=== PATIENT | male | born 1950 | race Caucasian/White ===

== ENCOUNTER 2024-07-21 23:19 | Inpatient (IN) | payer MEDICARE ==
[~2024-07-21] VITALS: Ht 188 cm; Wt 88.5 kg
[2024-07-21 23:25] VITALS: BP 145/98; TEMP 97.9; O2SAT 98
[2024-07-22] MEDS ORDERED: LORAZEPAM 1 MG TABLET PO PRN (00:15)
[2024-07-22] MEDS ORDERED: AMLO2.5T4 PO (00:15)
[2024-07-22] MEDS ORDERED: ZOLPIDEM 5 MG TABLET PO PRN (00:15)
[2024-07-22] MEDS ORDERED: MAG HYDROX/AL HYDROX/SIMETH 30 ML LIQUID UDC PO PRN (00:15)
[2024-07-22] MEDS ORDERED: IBUP-1957 PO (00:15)
[2024-07-22] MEDS ORDERED: MAGNESIUM HYDROXIDE 30 ML LIQUID UDC PO PRN (00:15)
[2024-07-22] MEDS ORDERED: RISP4TAB4 PO (00:15)
[2024-07-22] MEDS ORDERED: CLON0.1T PO (00:15)
[2024-07-22] MEDS ORDERED: ACETAMINOPHEN 325 MG TABLET PO PRN (00:15)
[2024-07-22] MEDS ORDERED: OLAN10TA3 PO (00:15)
[2024-07-22] MEDS ORDERED: QUET50TA PO (00:15)
[2024-07-22] MEDS: BLOOD SUGAR DIAGNOSTIC 1 EACH STRIP VI ONE (00:20)
[2024-07-22] MEDS: LORAZEPAM 1 MG TABLET PO PRN ×2 (01:02→12:11)
[2024-07-22 08:08] VITALS: BP 139/93; TEMP 98; O2SAT 98
[2024-07-22] MEDS: OLANZAPINE 5 MG TABLET PO SCH (10:22)
[2024-07-22] MEDS ORDERED: CLONIDINE HCL 0.1 MG TABLET PO PRN (10:30)
[2024-07-22] MEDS ORDERED: IBUPROFEN 800 MG TABLET PO PRN (10:30)
[2024-07-22] MEDS: AMLODIPINE 2.5 MG TABLET PO SCH (12:18)
[2024-07-22] MEDS: OLANZAPINE 10 MG VIAL IM ONE (14:36)
[2024-07-22] MEDS: IBUPROFEN 600 MG TABLET PO PRN (18:56)
[2024-07-22 20:00] VITALS: BP 121/81; TEMP 98.1; O2SAT 97
[2024-07-22] MEDS: ZOLPIDEM 5 MG TABLET PO PRN (20:06)
[2024-07-23 08:07] VITALS: BP 150/101; TEMP 98; O2SAT 100
[2024-07-23] MEDS ORDERED: AMLODIPINE 2.5 MG TABLET PO SCH (09:00)
[2024-07-23 16:22] VITALS: BP 112/82; TEMP 97.6; O2SAT 100
[2024-07-23 20:06] VITALS: BP 146/84; TEMP 98.1; O2SAT 99
[2024-07-24 08:10] VITALS: BP 139/81; TEMP 97.6; O2SAT 100
[2024-07-24 16:18] VITALS: BP 118/62; TEMP 98; O2SAT 100
[2024-07-25 07:30] VITALS: BP 130/88; TEMP 98; O2SAT 99
[2024-07-25 15:33] VITALS: BP 127/75; TEMP 98; O2SAT 98
[2024-07-25 20:00] VITALS: BP 115/74; TEMP 97.5; O2SAT 99
[2024-07-26 08:00] VITALS: BP 132/75; TEMP 98; O2SAT 100
[2024-07-26 15:06] VITALS: BP 145/79; TEMP 98; O2SAT 96
[2024-07-26 20:00] VITALS: BP 122/68; TEMP 98; O2SAT 97
[2024-07-27 08:16] VITALS: BP 119/80; TEMP 98; O2SAT 99
[2024-07-27] MEDS: OLANZAPINE 5 MG TABLET PO SCH (09:06)
[2024-07-27 16:07] VITALS: BP 140/70; TEMP 98; O2SAT 99
[2024-07-27 20:00] VITALS: BP 169/89; TEMP 97.5; O2SAT 97
[2024-07-27 22:25] VITALS: BP 114/58
[2024-07-28 16:18] VITALS: BP 110/55; TEMP 97.6; O2SAT 100
[2024-07-28 20:35] VITALS: BP 123/84; TEMP 98.1; O2SAT 97
[2024-07-29 08:22] VITALS: BP 127/80; TEMP 98.2; O2SAT 100
[2024-07-29 20:00] VITALS: BP 107/67; TEMP 98; O2SAT 98
[2024-07-30 15:04] LABS: BASOPHILS # (AUTO) 0.1 K/UL (0.0-0.2); BASOPHILS % (AUTO) 1.4 % (0.0-2.0); EOSINOPHILS # (AUTO) 0.3 K/uL (0.0-0.7); EOSINOPHILS % (AUTO) 4.4 % (0.0-7.0); HEMOGLOBIN 14.7 g/dL (12.5-16.3); LYMPHOCYTES # (AUTO) 2.3 K/uL (0.8-4.8); LYMPHOCYTES % (AUTO) 28.7 % (20.5-51.5); MEAN CORPUSCULAR HEMOGLOBIN 31.4 uug (23.8-33.4); MEAN CORPUSCULAR HGB CONC 35 g/dL (32.5-36.3); MEAN CORPUSCULAR VOLUME 89.8 fL (73.0-96.2); MONOCYTES # (AUTO) 0.5 K/uL (0.1-1.30); MONOCYTES % (AUTO) 6.9 % (0.0-11.0); NEUTROPHILS # (AUTO) 4.6 K/uL (1.8-8.9); NEUTROPHILS % (AUTO) 58.6 % (38.5-71.5); PLATELET COUNT (AUTO) 254 K/uL (152-348); RED BLOOD CELL COUNT(AUTO) 4.68 MIL/uL (4.06-5.63); RED CELL DISTRIBUTION WIDTH 13.9 % (12.1-16.2); WHITE BLOOD COUNT (AUTO) 7.9 K/uL (3.6-10.2)
[2024-07-30 15:09] LABS: DIFFERENTIAL COMMENT 1
[2024-07-30 15:27] LABS: THYROID STIMULATING HORMONE 1.208 mIU/mL (0.358-3.740)
[2024-07-30 15:46] LABS: ALANINE AMINOTRANSFERASE 22 U/L (16-63); ALBUMIN 3.7 g/dL (3.4-5.0); ALKALINE PHOSPHATASE 104 U/L (50-136); ASPARTATE AMINOTRANSFERASE 9 U/L (15-37); BILIRUBIN,TOTAL 0.4 mg/dL (0.2-1.0); CALCIUM 9.1 mg/dL (8.5-10.1); CARBON DIOXIDE 28 mmol/L (21-32); CHLORIDE 105 mmol/L (98-107); CHOLESTEROL 159 mg/dL (<200); GLUCOSE 112 mg/dL (74-106); HDL CHOLESTEROL 29 mg/dL (40-60); PHOSPHOROUS 3.4 mg/dL (2.5-4.9); POTASSIUM 4.1 mmol/L (3.5-5.1); SODIUM SERUM 142 mmol/L (136-145); TOTAL PROTEIN, SERUM 7.5 g/dL (6.4-8.2); TRIGLYCERIDES 496 MG/DL (30-150); UREA NITROGEN, BLOOD 22 mg/dL (7-18)
[2024-07-31 08:12] VITALS: BP 138/91; TEMP 98; O2SAT 100
[2024-07-31] MEDS: OLANZAPINE 5 MG TABLET PO SCH (08:58)
[2024-07-31 19:55] VITALS: BP 130/84; TEMP 98.1; O2SAT 99
[2024-08-01 09:43] VITALS: BP 133/86; TEMP 98; O2SAT 100
[2024-08-01 16:05] VITALS: BP 132/62; TEMP 98; O2SAT 100
[2024-08-01 19:59] VITALS: BP 128/84; TEMP 98.1; O2SAT 99
[2024-08-02 08:16] VITALS: BP 144/97; TEMP 98; O2SAT 100
[2024-08-02 16:14] VITALS: BP 138/91; TEMP 98.2; O2SAT 100
[2024-08-02 20:00] VITALS: BP 118/75; TEMP 97.5
[2024-08-03 07:55] VITALS: BP 146/82; TEMP 98; O2SAT 100
[2024-08-03 15:18] VITALS: BP 114/80; TEMP 98; O2SAT 99
[2024-08-03 19:50] VITALS: BP 110/77; TEMP 97.7; O2SAT 98
[2024-08-04 08:10] VITALS: BP 132/79; TEMP 98; O2SAT 100
[2024-08-04 10:55] VITALS: BP 132/79
[2024-08-04] MEDS ORDERED: CLON0.1T PO (11:41)
[2024-08-04] MEDS ORDERED: AMLO2.5T4 PO (11:41)
== END 2024-08-04 14:45 | DRG 885 ==
LOC: GPS 23:19
PROVIDERS: ADMIT Psychiatry & Neurology Psychiatry; ATTEND Internal Medicine
DX: F29 Unspecified psychosis not due to a substance or known physiological condition (principal); F03.93 Unspecified dementia, unspecified severity, with mood disturbance; F03.94 Unspecified dementia, unspecified severity, with anxiety; D68.59 Other primary thrombophilia; M62.81 Muscle weakness (generalized); Z91.199 Patient's noncompliance with other medical treatment and regimen due to unspecified reason; G89.29 Other chronic pain; I10 Essential (primary) hypertension; R79.89 Other specified abnormal findings of blood chemistry; R26.81 Unsteadiness on feet; E78.1 Pure hyperglyceridemia; Z91.81 History of falling; Z79.899 Other long term (current) drug therapy
CPT/HCPCS: 36415; 71045; 83735; 84100; 84443; 85025; J2358

== ENCOUNTER 2024-08-15 16:56 | Inpatient (IN) | payer MEDICARE ==
[~2024-08-15] VITALS: Ht 172.7 cm; Wt 88.5 kg
[~2024-08-15 16:56] MED LIST: AMLO2.5T4 PO; CLON0.1T PO
[2024-08-15 17:35] LABS: BASOPHILS # (AUTO) 0.1 K/UL (0.0-0.2); BASOPHILS % (AUTO) 0.7 % (0.0-2.0); EOSINOPHILS # (AUTO) 0.2 K/uL (0.0-0.7); EOSINOPHILS % (AUTO) 3.1 % (0.0-7.0); HEMATOCRIT 37.1 % (36.7-47.1); HEMOGLOBIN 12.8 g/dL (12.5-16.3); LYMPHOCYTES # (AUTO) 1.7 K/uL (0.8-4.8); LYMPHOCYTES % (AUTO) 22.5 % (20.5-51.5); MEAN CORPUSCULAR HEMOGLOBIN 31.4 uug (23.8-33.4); MEAN CORPUSCULAR HGB CONC 35 g/dL (32.5-36.3); MONOCYTES # (AUTO) 0.5 K/uL (0.1-1.30); MONOCYTES % (AUTO) 6.4 % (0.0-11.0); NEUTROPHILS # (AUTO) 5.1 K/uL (1.8-8.9); NEUTROPHILS % (AUTO) 67.3 % (38.5-71.5); PLATELET COUNT (AUTO) 227 K/uL (152-348); RED BLOOD CELL COUNT(AUTO) 4.08 MIL/uL (4.06-5.63); RED CELL DISTRIBUTION WIDTH 14.1 % (12.1-16.2); WHITE BLOOD COUNT (AUTO) 7.6 K/uL (3.6-10.2)
[2024-08-15 17:36] LABS: DIFFERENTIAL COMMENT 1
[2024-08-15 17:42] LABS: CALCIUM 8.6 mg/dL (8.5-10.1); CARBON DIOXIDE 26 mmol/L (21-32); CHLORIDE 111 mmol/L (98-107); GLUCOSE 115 mg/dL (74-106); POTASSIUM 3.9 mmol/L (3.5-5.1); SODIUM SERUM 147 mmol/L (136-145); UREA NITROGEN, BLOOD 21 mg/dL (7-18)
[2024-08-15 17:47] LABS: ALANINE AMINOTRANSFERASE 14 U/L (16-63); ALBUMIN 3.5 g/dL (3.4-5.0); ALKALINE PHOSPHATASE 90 U/L (50-136); ASPARTATE AMINOTRANSFERASE 12 U/L (15-37); BILIRUBIN,DIRECT 0.1 mg/dL (0.0-0.2); BILIRUBIN,TOTAL 0.4 mg/dL (0.2-1.0); TOTAL PROTEIN, SERUM 6.7 g/dL (6.4-8.2)
[2024-08-15] MEDS: LORAZEPAM 0.5 MG TABLET PO ONE (21:05)
[2024-08-15] MEDS: OLANZAPINE 5 MG TABLET PO ONE (21:05)
[2024-08-15] MEDS ORDERED: OLANZAPINE 5 MG TABLET ONE (23:30)
[2024-08-15] MEDS ORDERED: LORAZEPAM 1 MG TABLET ONE (23:30)
[2024-08-16 00:51] LABS: ETHANOL < 3 MG/DL (0-10)
[2024-08-16] MEDS ORDERED: ZOLPIDEM 5 MG TABLET PO PRN ×2 (01:00)
[2024-08-16] MEDS ORDERED: LORAZEPAM 1 MG TABLET PO PRN (01:00)
[2024-08-16] MEDS ORDERED: MAGNESIUM HYDROXIDE 30 ML LIQUID UDC PO PRN (01:00)
[2024-08-16] MEDS ORDERED: ACETAMINOPHEN 325 MG TABLET PO PRN (01:00)
[2024-08-16] MEDS: LORAZEPAM 1 MG TABLET PO PRN (01:20)
[2024-08-16 01:35] VITALS: TEMP 98.1; O2SAT 96
[2024-08-16] MEDS ORDERED: AMLO2.5T2 PO (03:42)
[2024-08-16] MEDS ORDERED: CLON0.1T PO (03:42)
[2024-08-16 08:10] VITALS: BP 98/71; TEMP 97.5; O2SAT 98
[2024-08-16] MEDS ORDERED: TEMAZEPAM 7.5 MG CAPSULE PO PRN (09:15)
[2024-08-16 16:10] VITALS: BP 126/78; TEMP 98.1; O2SAT 100
[2024-08-16] MEDS: OLANZAPINE 5 MG TABLET PO SCH (16:27)
[2024-08-16] MEDS: DIVALPROEX 250 MG TABLET.DR PO SCH (20:22)
[2024-08-16 20:30] VITALS: BP 131/77; TEMP 97.7; O2SAT 96
[2024-08-16] MEDS ORDERED: DIVALPROEX 125 MG TABLET.DR PO SCH (21:00)
[2024-08-17 16:00] VITALS: BP 130/67; TEMP 97.2; O2SAT 97
[2024-08-17 19:59] VITALS: BP 140/64; TEMP 98.1; O2SAT 98
[2024-08-18 08:10] VITALS: BP 157/92; TEMP 98.3; O2SAT 100
[2024-08-18] MEDS: OLANZAPINE 5 MG TABLET PO SCH (09:00)
[2024-08-18] MEDS: OLANZAPINE 10 MG VIAL IM ONE (09:17)
[2024-08-18 16:12] VITALS: BP 155/97; TEMP 98.1; O2SAT 100
[2024-08-18 20:00] VITALS: BP 124/87; TEMP 98; O2SAT 98
[2024-08-19] MEDS: MAG HYDROX/AL HYDROX/SIMETH 30 ML LIQUID UDC PO PRN (12:18)
[2024-08-19] MEDS ORDERED: ONDANSETRON ODT 4 MG TAB.RAPDIS SL PRN (13:30)
[2024-08-19 16:12] VITALS: BP 169/88; TEMP 98.3; O2SAT 100
[2024-08-19 20:09] VITALS: BP 103/57; TEMP 97.6; O2SAT 96
[2024-08-20 08:12] VITALS: BP 130/70; TEMP 97.6; O2SAT 100
[2024-08-20 16:12] VITALS: BP 142/82; TEMP 98.1; O2SAT 100
[2024-08-20 19:49] VITALS: BP 142/89; TEMP 98.3; O2SAT 97
[2024-08-21 08:08] VITALS: BP 145/87; TEMP 97.8; O2SAT 100
[2024-08-21] MEDS: OLANZAPINE ZYDIS 5 MG TAB.RAPDIS PO SCH (08:23)
[2024-08-21 16:14] VITALS: BP 149/85; TEMP 98; O2SAT 100
[2024-08-21 20:00] VITALS: BP 124/68; TEMP 97.8; O2SAT 96
[2024-08-22 08:16] VITALS: BP 136/75; TEMP 98.2; O2SAT 100
[2024-08-22 16:14] VITALS: BP 142/80; TEMP 98; O2SAT 100
[2024-08-22 21:43] VITALS: BP 121/79; TEMP 98.7; O2SAT 98
[2024-08-23 16:00] VITALS: BP 120/93; TEMP 98.9
[2024-08-23 20:19] VITALS: BP 126/78; TEMP 98.2; O2SAT 96
[2024-08-24 07:51] VITALS: BP 143/90; TEMP 98.4; O2SAT 93
[2024-08-24 15:16] VITALS: BP 151/95; TEMP 98.3; O2SAT 96
[2024-08-24 20:00] VITALS: BP 140/80; TEMP 98.5; O2SAT 97
[2024-08-25 08:14] VITALS: BP 153/86; TEMP 98.3; O2SAT 100
[2024-08-25 16:14] VITALS: BP 119/77; TEMP 98.3; O2SAT 100
[2024-08-25 20:00] VITALS: BP 113/71; TEMP 97.5; O2SAT 96
[2024-08-26 08:10] VITALS: BP 148/51; TEMP 97.6; O2SAT 98
[2024-08-26 16:12] VITALS: BP 140/80; TEMP 98.1; O2SAT 100
[2024-08-27 08:29] VITALS: BP 156/90; TEMP 98; O2SAT 100
[2024-08-27 15:07] VITALS: BP 133/77; TEMP 98; O2SAT 100
[2024-08-27 20:00] VITALS: BP 114/80; TEMP 98.5; O2SAT 96
[2024-08-28 08:06] VITALS: BP 150/88; TEMP 97.7; O2SAT 98
[2024-08-28 08:14] VITALS: BP 150/88; TEMP 97.7; O2SAT 98
[2024-08-28] MEDS: LORAZEPAM 1 MG TABLET PO PRN (11:43)
== END 2024-08-28 13:45 | DRG 885 ==
LOC: ER 16:56 → GPS 20:22
PROVIDERS: ADMIT Psychiatry & Neurology Psychiatry; ATTEND Nurse Practitioner Family
DX: F29 Unspecified psychosis not due to a substance or known physiological condition (principal); F03.93 Unspecified dementia, unspecified severity, with mood disturbance; E87.0 Hyperosmolality and hypernatremia; Z87.891 Personal history of nicotine dependence; I10 Essential (primary) hypertension; Z91.148 Patient's other noncompliance with medication regimen for other reason; M62.81 Muscle weakness (generalized); M54.9 Dorsalgia, unspecified; G89.29 Other chronic pain; R79.89 Other specified abnormal findings of blood chemistry; R00.1 Bradycardia, unspecified
CPT/HCPCS: 36415; 85025; A4606; A4663; G0480; J2358; J3490